=== PATIENT | female | born 1990 | race Hispanic/Latino ===

== ENCOUNTER 2017-02-23 23:14 | Emergency (ER) | payer OTHER ==
[2017-02-24] MEDS ORDERED: diphenhydrAMINE 25 MG CAP ONE (01:47)
== END 2017-02-24 01:55 | disposition home or self-care (01) ==
LOC: ERS 23:14
DX: O98.813 Other maternal infectious and parasitic diseases complicating pregnancy, third trimester (principal); B37.3 Candidiasis of vulva and vagina; Z3A.32 32 weeks gestation of pregnancy
CPT/HCPCS: 87480; 87491; 87510; 87591; 87660; 99284

== ENCOUNTER 2017-03-11 08:05 | Inpatient (IN) | payer OTHER ==
[2017-03-11] MEDS ORDERED: LR / Pitocin 40 units/1000 ml 1,000 ML ONE (08:26)
[2017-03-11] MEDS ORDERED: Lidocaine 1% (PF) 30 ML VIAL ONE (08:26)
[2017-03-11] MEDS ORDERED: Promethazine HCl 25 MG/ML VIAL IM PRN (08:40)
[2017-03-11] MEDS ORDERED: Lidocaine 1% (PF) 30 ML VIAL SC PRN (08:40)
[2017-03-11] MEDS ORDERED: HYDROcodone/Acetaminophen 5/325 mg Tablet PO PRN ×2 (08:40→14:13)
[2017-03-11] MEDS ORDERED: Ibuprofen 800 MG TAB PO PRN (08:40)
[2017-03-11] MEDS ORDERED: LR / Pitocin 40 units/1000 ml 1,000 ML IV PRN (08:40)
[2017-03-11] MEDS ORDERED: Ondansetron HCl/PF 4 MG/2 ML Vial IVP PRN (08:40)
[2017-03-11 08:42] VITALS: BMI 29.2
--- NOTE | 2017-03-11 08:43 | PDOC.LDHP ---
Labor and Delivery H&P HPI: 03/11/17 @0935: 26 year old at term with spontaneous labor, arrives at 9cm. Patient of Dr Groves with Dr valle covering (Jose Cruz). BOWI. On Valtrex but no HX outbreak. Patient has handwritten H&P in physical chart. Current gestational age (weeks): 39 (3) Dating criteria: last menstrual period Grav: 3 Para: 2 Current complications: none Abnormal US findings: No Current medications: other (Valtrex, but no HX outbreak.) Previous surgical history: other Allergies/Adverse Reactions: Allergies Allergy/AdvReac Type Severity Reaction Status Date / Time No Known Allergies Allergy Verified 03/11/17 08:33 Social history: other - Physical Exam Vital signs reviewed and normal: yes General: NAD, other (contraction discomfort) Heart: RRR Lungs: CTAB Abdomen: gravid FHT: category 1 - Vaginal Exam cm dilated: 9 Effacement: 90% Station: 0 - Assessment L&D Assessment: term patient in labor term...nearing second stage. On Valtrex but denies HX of outbreaks in past or now. GBS negative. - Plan Plan: admit to L&D, informed consent obtained, anesthesia consult for pain management, other (Dr Valle now here in L&D after stat patient admit. Pain meds. No V/V lesions noted/reported. Nearing second stage.)
[2017-03-11] MEDS ORDERED: Lactated Ringer's 1,000 ML IV SCH (08:45)
[2017-03-11 08:50] LABS: Hematocrit 31.9 % (36.0-47.0); Mean Platelet Volume 8.5 fL (7.4-10.4); Red Blood Cell (RBC) Count 3.82 mill/uL (4.20-5.40)
--- NOTE | 2017-03-11 08:59 | PDOC.EVN ---
Event Note - Event Note Event Note: Time correction on H&P: Patient was seen and admitted 03/11/2017 at 0835 and not 0935.
[2017-03-11] MEDS: HYDROcodone/Acetaminophen 5/325 mg Tablet PO PRN ×2 (10:14→14:25)
--- NOTE | 2017-03-11 11:01 | DN ---
DATE OF PROCEDURE: 03/11/2017 PREOPERATIVE DIAGNOSIS: Term POSTOPERATIVE DIAGNOSIS: Term . PROCEDURE PERFORMED: Spontaneous vaginal delivery. DESCRIPTION OF PROCEDURE: This 26-year-old Latin-Hung[place] female G3, P2 taken to delivery room, comp lete and pushing. The patient prepped and draped sterilely. Delivered a baby boy with Apgars 9 at 1 minute and 9 at 5 minutes. Baby did breathe and cry vigorously upon delivery. No lacerations were present. Delivered placenta, 3-vessel intact. Mother and baby did well. No anesthesia. Estimated blood loss 350 mL.
[2017-03-11] MEDS ORDERED: LR / Pitocin 40 units/1000 ml 1,000 ML IV SCH (12:29)
[2017-03-11] MEDS ORDERED: Lanolin Ointment 7 GM TUBE TOP PRN (12:29)
[2017-03-11] MEDS ORDERED: Milk Of Magnesia 30 ML UDCUP PO PRN (12:29)
[2017-03-11] MEDS ORDERED: Bisacodyl 10 MG SUPP PR PRN (12:29)
[2017-03-11] MEDS ORDERED: Adacel (T-DAP) 0.5 ML VIAL IM ONE (12:29)
[2017-03-11] MEDS: Ferrous Sulfate 325 MG TAB PO SCH (13:56)
[2017-03-11] MEDS ORDERED: Benzocaine/Menthol 20-0.5% 60 ML CAN TOP PRN (14:13)
[2017-03-11] MEDS: Ibuprofen 800 MG TAB PO SCH ×2 (14:39→17:22)
[2017-03-11] MEDS: Docusate (Surfak) 240 MG CAP PO SCH (21:03)
[2017-03-12] MEDS: Ibuprofen 800 MG TAB PO SCH ×2 (05:18→06:04)
[2017-03-12 06:26] LABS: Mean Platelet Volume 8.3 fL (7.4-10.4); Red Blood Cell (RBC) Count 3.63 mill/uL (4.20-5.40); White Blood Cell (WBC) Count 10.1 thou/uL (4.8-10.8)
[2017-03-12 08:39] VITALS: BP 101/57; TEMP 98
[2017-03-12] MEDS: Docusate (Surfak) 240 MG CAP PO SCH (08:45)
[2017-03-12] MEDS: Ferrous Sulfate 325 MG TAB PO SCH (08:45)
[2017-03-12] MEDS ORDERED: Prenatal Vitamin 1 TAB PO SCH (09:00)
== END 2017-03-12 12:05 | disposition home or self-care (01) | DRG 775 ==
LOC: L&D/OP 08:05 → L&D 08:26 → 3SW 12:26
PROVIDERS: ADMIT Family Medicine; ATTEND Family Medicine
PROC: 10E0XZZ Delivery of Products of Conception, External Approach (ICD-10-PCS; principal; 2017-03-11)
PROC: 10907ZC Drainage of Amniotic Fluid, Therapeutic from Products of Conception, Via Natural or Artificial Opening (ICD-10-PCS; 2017-03-11)
PROC: 4A0HXCZ Measurement of Products of Conception, Cardiac Rate, External Approach (ICD-10-PCS; 2017-03-11)
DX: O63.1 Prolonged second stage (of labor) (principal); Z86.19 Personal history of other infectious and parasitic diseases; Z37.0 Single live birth; Z3A.39 39 weeks gestation of pregnancy
CPT/HCPCS: 36415; 85027; 86780; 87340; 87389; J0595; J2001

== ENCOUNTER 2017-08-14 07:46 | Emergency (ER) | payer OTHER, SELFPAY ==
[2017-08-14] MEDS ORDERED: Dexamethasone 4 MG TAB ONE (09:48)
== END 2017-08-14 09:51 ==
LOC: ERS 07:46
DX: J02.0 Streptococcal pharyngitis (principal)
CPT/HCPCS: 87430; 99283; J8540

== ENCOUNTER 2019-12-04 23:34 | Emergency (ER) | payer SELFPAY ==
[2019-12-05 13:29] LABS: SARS-CoV-2 MS2 Positive; SARS-CoV-2 N Gene Negative; SARS-CoV-2 S Gene Negative; SARS-CoV-2 by NAA Not Detected (NotDetected); SARS-CoV-2 orf1ab Negative
== END 2019-12-05 01:16 | disposition home or self-care (01) ==
LOC: ERS 23:34
DX: J30.2 Other seasonal allergic rhinitis (principal); Z20.828 Contact with and (suspected) exposure to other viral communicable diseases
CPT/HCPCS: 87081; 87430; 87635; 99284; U0003

== ENCOUNTER 2020-05-27 09:39 | Emergency (ER) | payer BC, SELFPAY ==
[2020-05-27] MEDS ORDERED: Acetaminophen 500 MG TAB ONE (10:09)
[2020-05-27 20:21] LABS: SARS-CoV-2 PCR by NAA DETECTED (NotDetected)
== END 2020-05-27 11:02 | disposition home or self-care (01) ==
LOC: ERS 09:39
DX: U07.1 COVID-19 (principal); J01.10 Acute frontal sinusitis, unspecified
CPT/HCPCS: 87635; 99283; U0003; U0005

== ENCOUNTER 2020-12-13 18:48 | Emergency (ER) | payer SELFPAY ==
[2020-12-14 13:45] LABS: SARS-CoV-2 PCR by NAA Not Detected (NotDetected)
== END 2020-12-13 19:51 | disposition home or self-care (01) ==
LOC: ERS 18:48
DX: R51.9 Headache, unspecified (principal); Z20.822 Contact with and (suspected) exposure to COVID-19
CPT/HCPCS: 99283; U0003; U0005

== ENCOUNTER 2021-01-27 21:08 | Emergency (ER) | payer BC, SELFPAY ==
[2021-01-27] MEDS ORDERED: Acetaminophen 500 MG TAB ONE (22:18)
[2021-01-27 22:54] LABS: #Basophils 0.1 thou/uL (0.0-0.2); #Eosinphils 0.1 thou/uL (0.0-0.7); #Lymphocytes 2.3 thou/uL (1.20-3.40); #Monocytes 0.7 thou/uL (0.11-0.59); #Neutrophils 9.5 thou/uL (1.40-6.50); %Basophils 0.4 % (0.0-1.0); %Eosinophils 0.7 % (0.0-10.0); %Lymphocytes 18.2 % (21.0-51.0); %Monocytes 5.2 % (0.0-10.0); %Neutrophils 75.5 % (42.0-75.0); Hemoglobin 12.9 g/dL (12.0-16.0); Mean Corpuscular Hemoglobin 30.9 pg (27.0-31.0); Mean Platelet Volume 7.4 fL (7.4-10.4); Platelet Count 302 thou/uL (130-400); RBC Distribution Width 11.7 % (11.5-14.5); Red Blood Cell (RBC) Count 4.17 mill/uL (4.20-5.40); White Blood Cell (WBC) Count 12.6 thou/uL (4.8-10.8)
[2021-01-27 23:15] LABS: ALT (SGPT) 66 U/L (8-55); AST (SGOT) 35 U/L (5-34); Albumin 4.1 g/dL (3.5-5.0); Alkaline Phosphatase 97 U/L (40-110); Anion Gap 11 mmol/L (10-20); BUN (Urea Nitrogen) 7 mg/dL (7.0-18.7); Bilirubin, Total 0.3 mg/dL (0.2-1.2); Calc. Creatinine Clearance 0 mL/min (70-130); Calcium 9.8 mg/dL (7.8-10.44); Carbon Dioxide 25 mmol/L (22-29); Chloride 106 mmol/L (98-107); Globulin 2.7 g/dL (2.4-3.5); Glucose 115 mg/dL (70-105); Lipase 15 U/L (8-78); Potassium 3.8 mmol/L (3.5-5.1); Protein, Total 6.8 g/dL (6.0-8.3); Sodium 138 mmol/L (136-145)
[2021-01-27 23:24] LABS: Bilirubin Negative (Negative); Blood, Urine Negative (Negative); Clarity Turbid (Clear); Glucose, Urine (Dipstick) Normal (Negative); Ketone, Urine Negative (Negative); Leukocyte Negative Leu/uL (Negative); Nitrite Negative (Negative); Protein, Urine (Dipstick) Negative (Neg-Trace); Specific Gravity, Urine 1.019 (1.002-1.036); Urobilinogen Normal mg/dL (Less than 2)
[2021-01-27 23:32] LABS: Pregnancy Test - Urine (BHCG) Negative (Negative); Pregu Control Background? CLEAR/WHITE (CLR/WHITE); Pregu Control Bar Appear? YES (CONTROL BAR); Specific Gravity 1.019 (1.002-1.036)
== END 2021-01-28 00:26 | disposition home or self-care (01) ==
LOC: ERS 21:08
DX: N83.291 Other ovarian cyst, right side (principal)
CPT/HCPCS: 36415; 76856; 80053; 81003; 81025; 83690; 85025; 93976

== ENCOUNTER 2021-05-22 18:20 | Emergency (ER) | payer SELFPAY | END 2021-05-22 18:58 | disposition left against medical advice (07) | LOC: ERS 18:20 | DX: Z53.21 Procedure and treatment not carried out due to patient leaving prior to being seen by health care provider (principal) ==

== ENCOUNTER 2021-05-23 11:10 | Emergency (ER) | payer SELFPAY ==
[2021-05-23 13:05] LABS: SARS-CoV-2 NAA Rapid Test Not Detected (NotDetected)
== END 2021-05-23 12:45 | disposition home or self-care (01) ==
LOC: ERS 11:10
DX: J02.9 Acute pharyngitis, unspecified (principal); R50.9 Fever, unspecified; R52 Pain, unspecified; Z20.822 Contact with and (suspected) exposure to COVID-19; F17.290 Nicotine dependence, other tobacco product, uncomplicated
CPT/HCPCS: 0240U; 99283

== ENCOUNTER 2022-03-23 13:25 | Emergency (ER) | payer SELFPAY | END 2022-03-23 14:26 | disposition home or self-care (01) | LOC: ERS 13:25 | DX: S00.86XA Insect bite (nonvenomous) of other part of head, initial encounter (principal); F17.210 Nicotine dependence, cigarettes, uncomplicated; W57.XXXA Bitten or stung by nonvenomous insect and other nonvenomous arthropods, initial encounter | CPT/HCPCS: 99283 ==